=== PATIENT | male | born 2000 | race Caucasian/White ===

== ENCOUNTER 2022-05-20 17:00 | Emergency (ER) | payer BC, SELFPAY ==
[2022-05-20 17:11] VITALS: BP 108/66; PULSE 88; RESP 18; TEMP 36.2; O2SAT 100
--- NOTE | 2022-05-20 17:36 | ED.URI ---
HPI - URI/Sore Throat General Chief Complaint: Upper Respiratory Infection Stated Complaint: Sore Throat,Abdominal Pain,Headache Time Seen by Provider: 05/20/22 17:19 Source: patient Mode of arrival: ambulatory Limitations: no limitations History of Present Illness HPI Narrative: The patient presents today complaining of sore and scratchy throat, cough, headache, and diarrhea since last night. Currently rates the sore throat 8/10, which increases with swallowing. He has been taking DayQuil, ibuprofen, zinc, vitamin-C. Ibuprofen helps for short periods of time. Girlfriend was diagnosed with strep throat yesterday. 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 EYES: Denies visual changes, redness, or discharge. ENT: Denies rhinorrhea, congestion, or otalgia.+ sore throat CARDIOVASCULAR: Denies chest pain, palpitations, or edema. RESPIRATORY: Denies dyspnea.+ cough GASTROINTESTINAL: Denies abdominal pain, nausea, vomiting.+ diarrhea GENITOURINARY: Denies dysuria or hematuria. SKIN: Denies rash, itching, or wounds. MUSCULOSKELETAL: Denies back pain, joint pain, or myalgia. NEUROLOGIC: Denies numbness, tingling, or weakness.+ headache PSYCH: Denies depression or anxiety. PMFSH Comments At time of signature, I have reviewed and agree with nursing past medical, surgical, social and family history unless otherwise noted. Please see nursing chart for further information. There is no relevant family history pertinent to the presenting complaint Exam Narrative: GENERAL: Well-appearing, well-nourished, and in no acute distress. HEAD: Normocephalic, atraumatic. EYES: EOMI. No redness or drainage. Conjunctivae normal. ENT: Mucous membranes pink and moist. Nares clear. No rhinorrhea. TMs normal bilaterally. Throat mildly erythematous without edema x-ray. Uvula midline. NECK: Normal AROM. Supple. No lymphadenopathy. CHEST: No respiratory distress. Clear to auscultation. HEART: Regular rate and rhythm. No murmur appreciated. Normal peripheral pulses. EXTREMITIES: Normal range of motion. No edema. SKIN: Warm, dry, no rash. Capillary refill normal. Normal skin turgor. NEURO: No focal deficits. Alert and oriented x3. Gait steady. PSYCH: Normal affect. No signs of depression or anxiety. Course Course Level of Care: Express Care Visit Vital Signs Vital signs: Vital Signs Temperature 97.2 F L 05/20/22 17:11 Pulse Rate 88 05/20/22 17:11 Respiratory Rate 18 05/20/22 17:11 Blood Pressure 108/66 05/20/22 17:11 Pulse Oximetry 100 05/20/22 17:11 Oxygen Delivery Room Air 05/20/22 17:11 Temperature 97.2 F L 05/20/22 17:11 Pulse Rate 88 05/20/22 17:11 Respiratory Rate 18 05/20/22 17:11 Blood Pressure 108/66 05/20/22 17:11 Pulse Oximetry 100 05/20/22 17:11 Oxygen Delivery Room Air 05/20/22 17:11 Reviewed MDM - URI/Sore Throat Differential Diagnosis Differential diagnosis: Likely upper respiratory infection, viral infection, pharyngitis and other (Strep throat) Lab Data Attestation: I reviewed the patient's lab results. Labs: Strep Screen Positive Group A Strep *(Reference Range: Negative)* Critical Care Time Critical Care Time Critical Care Time: No Discharge Plan Discharge Clinical Impression: Strep throat Patient Disposition: Home, Self-Care Condition: Stable Instructions: Antibiotic Form, Strep Throat (ED) Additional Instructions: Your strep swab is positive today. Please take the cephalexin as prescribed until gone. You will be contagious for 48 hours of discharge the antibiotics. Continue [id number] medication for his symptoms. Follow-up with your doctor in
== END 2022-05-20 17:45 | disposition home or self-care (01) ==
PROVIDERS: Emergency Provider Nurse Practitioner
DX: J02.0 Streptococcal pharyngitis (principal)
CPT/HCPCS: 87880; 99213; G0463